=== PATIENT | male | born 2000 | race Caucasian/White ===

== ENCOUNTER 2021-05-01 11:15 | Inpatient (IN) | payer OTHER ==
[~2021-05-01] VITALS: Ht 180.3 cm; Wt 72.7 kg
[2021-05-01 12:13] LABS: HEMATOCRIT 40.7 % (42.0-52.0); MEAN CORPUSCULAR HEMOGLOBIN 29.7 pg (27.0-33.0); MEAN CORPUSCULAR HGB CONC 34.4 g/dl (32.0-36.5); MEAN CORPUSCULAR VOLUME 86.2 fl (80.0-96.0); PLATELET COUNT, AUTOMATED 206 10^3/uL (150-450); RED BLOOD COUNT 4.72 10^6/uL (4.30-6.10); WHITE BLOOD COUNT 4.3 10^3/uL (4.0-10.0)
[2021-05-01 12:40] LABS: AMPHETAMINES LEVEL URINE NEGATIVE (NEGATIVE); BARBITURATES URINE NEGATIVE (NEGATIVE); BENZODIAZEPINES URINE NEGATIVE (NEGATIVE); CANNABINOIDS URINE NEGATIVE (NEGATIVE); COCAINE METABOLITE URINE NEGATIVE (NEGATIVE); METHADONE URINE NEGATIVE (NEGATIVE); OPIATES URINE NEGATIVE (NEGATIVE); PHENCYCLIDINE URINE NEGATIVE (NEGATIVE)
[2021-05-01 12:49] LABS: ACETAMINOPHEN LEVEL < 2.0 UG/ML (10.0-30.0); ALBUMIN 4.1 GM/DL (3.2-5.2); ALT/SGPT 25 U/L (12-78); BILIRUBIN,DIRECT 0.3 MG/DL (0.0-0.2); BILIRUBIN,TOTAL 1.1 MG/DL (0.2-1.0); BLOOD UREA NITROGEN 15 MG/DL (7-18); CALCIUM LEVEL 8.8 MG/DL (8.5-10.1); CARBON DIOXIDE LEVEL 27 MEQ/L (21-32); CHLORIDE LEVEL 109 MEQ/L (98-107); ETHYL ALCOHOL (ETHANOL) < 0.003 % (0.000-0.010); GLUCOSE, FASTING 108 MG/DL (70-100); POTASSIUM SERUM 4.2 MEQ/L (3.5-5.1); SALICYLATE LEVEL < 1.7 MG/DL (5.0-30.0); SODIUM LEVEL 140 MEQ/L (136-145); THYROID STIMULATING HORMONE 0.484 uIU/ML (0.463-3.98); TOTAL PROTEIN 7.5 GM/DL (6.4-8.2)
[2021-05-01] MEDS ORDERED: HOME MED LIST COMPLETE! XX SCH (14:55)
[2021-05-01] MEDS ORDERED: NICOTINE 21MG/24HR 1 EA TRANSDERMAL TD ONE (15:25)
[2021-05-01 15:52] LABS: RSV AMPLIFICATION NEGATIVE (NEGATIVE)
[2021-05-01] MEDS ORDERED: MOM 30ML SUSPENSION UDC PO PRN (21:35)
[2021-05-01] MEDS ORDERED: MAALOX 30 ML SUSP *UDC PO PRN (21:35)
[2021-05-01] MEDS ORDERED: ACETAMINOPHEN TAB 650MG DOSE (2X325MG) PO PRN (21:35)
[2021-05-01 22:19] VITALS: BP 101/63
[2021-05-01] MEDS: traZODone 50 MG TAB PO PRN (22:48)
[2021-05-02 06:42] VITALS: BP 108/53
[2021-05-02] MEDS: NICOTINE 21MG/24HR 1 EA TRANSDERMAL TD SCH (09:14)
[2021-05-02] MEDS: SERTRALINE HCL 50 MG TAB PO SCH (13:17)
[2021-05-02 17:13] VITALS: BP 138/80
[2021-05-02] MEDS: traZODone 50 MG TAB PO PRN (20:31)
[2021-05-03 05:34] VITALS: BP 110/57
[2021-05-03] MEDS: SERTRALINE HCL 50 MG TAB PO SCH (09:52)
[2021-05-03] MEDS: NICOTINE 21MG/24HR 1 EA TRANSDERMAL TD SCH (09:52)
[2021-05-03 18:18] VITALS: BP 128/90
[2021-05-04 06:38] VITALS: BP 98/53
[2021-05-04] MEDS: SERTRALINE HCL 50 MG TAB PO SCH (08:45)
[2021-05-04] MEDS: NICOTINE 21MG/24HR 1 EA TRANSDERMAL TD SCH (08:45)
[2021-05-04] MEDS ORDERED: QUEtiapine FUMARATE 25 MG TAB PO PRN (15:25)
[2021-05-04 16:19] VITALS: BP 101/53
[2021-05-05 06:46] VITALS: BP 107/56
[2021-05-05] MEDS: NICOTINE 21MG/24HR 1 EA TRANSDERMAL TD SCH (09:27)
[2021-05-05] MEDS: VENLAFAXINE **XR** 75MG CAPSULE PO SCH (09:27)
[2021-05-05 19:03] VITALS: BP 119/59
[2021-05-05] MEDS: QUEtiapine FUMARATE 50MG TAB PO SCH (20:11)
[2021-05-06 06:14] VITALS: BP 94/53
[2021-05-06] MEDS: NICOTINE 21MG/24HR 1 EA TRANSDERMAL TD SCH (09:08)
[2021-05-06] MEDS: VENLAFAXINE **XR** 75MG CAPSULE PO SCH (09:08)
[2021-05-06 16:29] VITALS: BP 137/60
[2021-05-06] MEDS: QUEtiapine FUMARATE 50MG TAB PO SCH (21:02)
[2021-05-07 05:47] VITALS: BP 116/65
[2021-05-07] MEDS: VENLAFAXINE **XR** 75MG CAPSULE PO SCH (09:38)
[2021-05-07] MEDS: NICOTINE 21MG/24HR 1 EA TRANSDERMAL TD SCH (09:39)
[2021-05-07 18:55] VITALS: BP 139/63
[2021-05-07] MEDS: QUEtiapine FUMARATE 50MG TAB PO SCH (20:29)
[2021-05-08 06:06] VITALS: BP 90/51
[2021-05-08] MEDS: NICOTINE 21MG/24HR 1 EA TRANSDERMAL TD SCH (08:08)
[2021-05-08] MEDS: VENLAFAXINE **XR** 75MG CAPSULE PO SCH (08:08)
[2021-05-08] MEDS ORDERED: VENL75CA47 PO (09:38)
[2021-05-08] MEDS ORDERED: QUET50TA4 PO (09:38)
== END 2021-05-08 13:04 | disposition home or self-care (01) | DRG 885 ==
LOC: M ED 11:15 → M ED INP 21:31 → M PSY 21:59
PROVIDERS: ADMIT Psychiatry & Neurology Psychiatry; ATTEND Psychiatry & Neurology Psychiatry
DX: F33.0 Major depressive disorder, recurrent, mild (principal); R45.851 Suicidal ideations; R45.850 Homicidal ideations; F10.10 Alcohol abuse, uncomplicated; F17.210 Nicotine dependence, cigarettes, uncomplicated; Z20.822 Contact with and (suspected) exposure to COVID-19